=== PATIENT | male | born 1990 | race Caucasian/White ===

== ENCOUNTER 2016-10-25 02:37 | Emergency (ER) | payer OTHER ==
[~2016-10-25] VITALS: Ht 180.3 cm; Wt 68.0 kg
[~2016-10-25 02:37] MED LIST: TRAZODONE HCL50 MG; WELLBUTRIN XL300 MG; ZYPREXA15 MG
--- NOTE | 2016-10-25 02:44 | ED PSYCHIATRIC COMPLAINT ---
See Addendum History of Present Illness General Chief Complaint: Psychiatric Related Complaint Stated Complaint: +SI Source: patient, old records, EMS, police Exam Limitations: no limitations Vital Signs & Intake/Output Vital Signs & Intake/Output Vital Signs Date Time Temp Pulse Resp B/P B/P Pulse O2 O2 Flow FiO2 Mean Ox Delivery Rate 10/25 0300 98.6 115 18 126/73 10/25 0250 98.6 115 20 126/73 95 Room Air Allergies Coded Allergies: MDX - Peanut Oil (PEANUT OIL) (Severe, ANAPHALAXIS 04/22/15) Reconcile Medications Bupropion Hydrochloride (Wellbutrin XL) 300 MG T24 DEPRESSION (Reported) Olanzapine (Zyprexa) 15 MG TAB 1 AT BEDTIME BIPOLAR DISORDER (Reported) TRAZODONE HCL (Trazodone HCl) 50 MG TABLET INSOMNIA (Reported) Triage Nurses Notes Reviewed? yes HPI: Patient brought in on a piece paper after expressing suicidal ideations offered. Patient states that he just has multiple stressors in his life right now and he does not know what to do. Patient stopped his medications one to 2 weeks ago. Patient is supposed take Zyprexa, Wellbutrin and Adderall. Patient has no specific plan. Patient denies homicidal ideations. Patient also states that he stepped heroin tonight positive alcohol. Patient states he drinks approximately 12 beers every day. Past History Travel History Traveled to [place] past 21 day No Medical History Any Pertinent Medical History? 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 No Review of Systems Review of Systems Constitutional: Reports: no symptoms. EENTM: Reports: no symptoms. Respiratory: Reports: no symptoms. Cardiovascular: Reports: no symptoms. GI: Reports: no symptoms. Genitourinary: Reports: no symptoms. Musculoskeletal: Reports: no symptoms. Skin: Reports: no symptoms. Neurological/Psychological: Reports: see HPI, depressed. Hematologic/Endocrine: Reports: no symptoms. Immunologic/Allergic: Reports: no symptoms. All Other Systems: Reviewed and Negative Physical Exam Physical Exam General Appearance: well developed/nourished, mild distress Head: atraumatic Eyes: Bilateral: PERRL, EOMI. Ears, Nose, Throat: normal pharynx, normal ENT inspection, hearing grossly normal Neck: normal inspection, supple Respiratory: normal breath sounds Cardiovascular: regular rate/rhythm Gastrointestinal: soft, non-tender Extremities: normal range of motion Neurological/Psychiatric: no motor/sensory deficits, awake, alert, calm, oriented x 3 Appearance/Memory/Insight: appropriate appearance, appropriate insight Behavoir/Eye Contact/Speech: cooperative, normal speech, good eye contact Thoughts/Hallucinations: normal thought pattern, no apparent hallucination Skin: intact, normal color, warm/dry SAD PERSONS Done? CRISIS CONSULT OBTAINED Progress Differential Diagnosis: drug intoxication, drug overdose, drug withdrawal, electrolyte abnormality Plan of Care: Orders Procedure Date/time Status [facility] 10/25 242 Active Continuous Observation Monitor 10/25 241 Active URINE DRUGS OF ABUSE 10/25 241 Active ETHANOL 10/25 241 Complete COMPREHENSIVE METABOLIC PANEL 10/25 241 Complete CBC WITHOUT DIFFERENTIAL 10/25 241 Complete ED CRISIS PSYCH CONSULT 10/25 241 Active Laboratory Tests 10/25/16 0255: Anion Gap 19 H, Estimated GFR > 60, BUN/Creatinine Ratio 10.0, Glucose 117 H, Calcium 9.6, Total Bilirubin 0.4, AST 16 L, ALT 30, Alkaline Phosphatase 67, Total Protein 7.5, Albumin 4.7, Globulin 2.8, Albumin/Globulin Ratio 1.7, CBC w Diff NO MAN DIFF REQ, RBC 4.88, MCV 90.7, MCH 30.6, RDW 13.9, MPV 7.2 L, Gran % 68.4, Lymphocytes % 23.2, Monocytes % 7.6, Eosinophils % 0.5, Basophils % 0.3, Absolute Granulocytes 7.9 H, Absolute Lymphocytes 2.7, Absolute Monocytes 0.9 H, Absolute Eosinophils 0.1, Absolute Basophils 0, PUBS MCHC 33.7, Serum Alcohol 54.0 Hand-Off Endorsed To: AUGUSTO CARRINGTON MD Endorsed Time: 0700 Pending: consult Departure Departure Disposition: STILL A PATIENT Condition: Stable Clinical Impression Primary Impression: Suicidal ideation Referrals: PATIENT HAS NO PRIMARY CARE DR (PCP/Family) Departure Forms: Customer Survey General Discharge Information
[2016-10-25 03:08] LABS: ABSOLUTE BASOPHIL COUNT 0 /CUMM (0.0-0.2); ABSOLUTE EOSINOPHIL COUNT 0.1 /CUMM (0.0-0.7); ABSOLUTE GRANULOCYTE CT 7.9 /CUMM (1.4-6.5); ABSOLUTE LYMPH COUNT 2.7 /CUMM (1.2-3.4); ABSOLUTE MONOCYTE COUNT 0.9 /CUMM (0.10-0.60); BASOPHIL % 0.3 % (0.0-2.0); EOSINOPHIL % 0.5 % (0-5); GRANULOCYTE % 68.4 % (42.2-75.2); HEMATOCRIT 44.3 % (42-52); MEAN CORPUSCULAR HGB 30.6 PG (27.0-31.0); MEAN CORPUSCULAR HGB CONC 33.7 G/DL (33.0-37.0); MEAN CORPUSCULAR VOLUME 90.7 FL (80.0-94.0); MEAN PLATELET VOLUME 7.2 FL (7.4-10.4); PLATELET COUNT 381 /CUMM (130-400); RBC DISTRIBUTION WIDTH 13.9 % (11.5-14.5); RED BLOOD CELL CT 4.88 /CUMM (4.70-6.10); WHITE BLOOD CELL COUNT 11.5 /CUMM (4.8-10.8)
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
[2016-10-25 13:05] VITALS: BP 132/60
== END 2016-10-25 15:26 | disposition other institution (70) ==
LOC: ERH 02:37
PROVIDERS: Emergency Medicine
DX: R45.851 Suicidal ideations (principal)
CPT/HCPCS: 80307; G0463; G0480; J3101

== ENCOUNTER 2016-11-26 01:50 | Inpatient (IN) | payer OTHER ==
[~2016-11-26] VITALS: Ht 188 cm; Wt 77.1 kg
--- NOTE | 2016-11-26 01:52 | ED AMS/SEIZURE/WEAK/DIZZY ---
History of Present Illness General Chief Complaint: ETOH/Drug Related Complaint Stated Complaint: BIBA ETOH Source: patient, EMS, police Exam Limitations: intoxication Vital Signs & Intake/Output Vital Signs & Intake/Output Vital Signs Date Time Temp Pulse Resp B/P B/P Pulse O2 O2 Flow FiO2 Mean Ox Delivery Rate 11/26 1205 97.8 91 18 140/72 96 Room Air 11/26 0814 97.0 88 18 124/68 98 Room Air 11/26 0634 96.0 92 20 128/69 97 Room Air 11/26 0402 96.8 88 18 137/86 98 Room Air 11/26 0210 97 Room Air Room Air 11/26 0201 96.7 110 20 146/90 97 Room Air Allergies Coded Allergies: peanut oil (Severe, ANAPHALACTIC 11/26/16) Reconcile Medications Bupropion Hydrochloride (Wellbutrin XL) 300 MG T24 DEPRESSION (Reported) Divalproex Sodium 250 MG TABLET.DR 3 TAB PO BID UNKNOWN (Reported) Olanzapine (Zyprexa) 15 MG TAB 1 AT BEDTIME BIPOLAR DISORDER (Reported) TRAZODONE HCL (Trazodone HCl) 50 MG TABLET INSOMNIA (Reported) Triage Nurses Notes Reviewed? yes Onset: Gradual Duration: day(s):, waxing and waning Timing: recent history Injury Environment: home Severity: moderate Modifying Factors: Improves With: rest. Associated Symptoms: DEPRESSION HPI: 26 yo gentleman discharged from [facility] yesterday presents after taking multiple medications, alcohol, and cocaine during the day. The medics note that he shared he had an intent to kill himself. The patient states that he took depakote 1000mg, gabapentin 4000mg as well as alcohol and cocaine. He denies trauma He denies other medical issues. (JOAQUÍN ROOT,SOFÍA Blum) Past History Travel History Traveled to [place] past 21 day No Medical History Any Pertinent Medical History? 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 No (JOAQUÍN ROOT,SOFÍA Blum) Review of Systems Review of Systems Constitutional: Reports: no symptoms. EENTM: Reports: no symptoms. Respiratory: Reports: no symptoms. Cardiovascular: Reports: no symptoms. GI: Reports: no symptoms. Genitourinary: Reports: no symptoms. Musculoskeletal: Reports: no symptoms. Skin: Reports: no symptoms. Neurological/Psychological: Reports: no symptoms. Hematologic/Endocrine: Reports: no symptoms. Immunologic/Allergic: Reports: no symptoms. All Other Systems: Reviewed and Negative (JOAQUÍN ROOT,SOFÍA Blum) Physical Exam Physical Exam General Appearance: well developed/nourished, mild distress Head: atraumatic, normal appearance Eyes: Bilateral: normal appearance. Ears, Nose, Throat: normal pharynx, normal ENT inspection Neck: normal inspection, supple, full range of motion Respiratory: normal breath sounds, chest non-tender, no respiratory distress, quiet respiration, lungs clear Cardiovascular: regular rate/rhythm Gastrointestinal: normal bowel sounds, soft, non-tender Back: normal inspection Extremities: normal range of motion Neurologic/Psych: no motor/sensory deficits, awake, slightly belligerent, but able to be redirected Core Measures ACS in differential dx? No CVA/TIA Diagnosis: No Severe Sepsis Present: No Septic Shock Present: No (JOAQUÍN ROOT,SOFÍA Blum) Progress Differential Diagnosis: depression, polysubstance abuse vs other Plan of Care: Orders Procedure Date/time Status Regular Diet 11/26 D Active Regular Diet 11/26 B Complete Admit to inpatient psych 11/26 1346 Active Patient Data - inpatient psych 11/26 1236 Active Admit to inpatient psych 11/26 1236 Active EKG 11/26 1236 Active Continuous Observation Monitor 11/26 0152 Active URINE DRUG SCREEN FOR ER ONLY 11/26 0152 Complete ACETOMINOPHEN 11/26 0152 Complete SALICYLATE 11/26 0152 Complete ETHANOL 11/26 0152 Complete DEPAKOTE LEVEL 11/26 0152 Complete COMPREHENSIVE METABOLIC PANEL 11/26 0152 Complete CBC WITHOUT DIFFERENTIAL 11/26 0152 Complete ED CRISIS PSYCH CONSULT 11/26 0152 Active Vital Signs 11/26 UNK Active Nursing Misc 11/26 UNK Active Alternative Nursing Therapy 11/26 UNK Active Activity/Ambulation 11/26 UNK Active Laboratory Tests 11/26/16 0225: Urine Opiates Screen < 100.00, Methadone Screen < 40, Barbiturate Screen < 60, Ur Phencyclidine Scrn < 6.00, Amphetamines Screen < 100, U Benzodiazepines Scrn < 85, Urine Cocaine Screen < 50, Urine Cannabis Screen 62.80 H 11/26/16 0225: Anion Gap 13, Estimated GFR > 60, BUN/Creatinine Ratio 14.4, Glucose 95, Calcium 9.3, Total Bilirubin 0.2, AST 25, ALT 35, Alkaline Phosphatase 59, Total Protein 6.9, Albumin 4.4, Globulin 2.5, Albumin/Globulin Ratio 1.8, CBC w Diff NO MAN DIFF REQ, RBC 4.43 L, MCV 91.0, MCH 30.8, RDW 14.9 H, MPV 7.0 L, Gran % 59.1, Lymphocytes % 32.9, Monocytes % 6.3, Eosinophils % 1.0, Basophils % 0.7, Absolute Granulocytes 5.7, Absolute Lymphocytes 3.2, Absolute Monocytes 0.6, Absolute Eosinophils 0.1, Absolute Basophils 0.1, PUBS MCHC 33.9, Salicylates < 1.0, Acetaminophen < 10.0 L, Valproic Acid 70.3, Serum Alcohol 180.0 Initial ED EKG: none Hand-Off Endorsed To: JOE PICKARD MD Endorsed Time: 0700 Pending: consult, labs (JOAQUÍN ROOT,SOFÍA Blum) Comments: 11/26/2016 7:34:26 AM patient signed out to me by Dr. Gaxiola at shift change management. 11/26/2016 1:46:47 PM patient has been evaluated by the crisis condition and will be admitted to inpatient psychiatry. (JOE PICKARD MD) Departure Departure Disposition: STILL A PATIENT Condition: Stable Referrals: PATIENT HAS NO PRIMARY CARE DR (PCP/Family) Departure Forms: Customer Survey General Discharge Information Comments 11/26/16, 4:04am... pt resting comfortably... pt to be evaluated by crises when sober. (JOAQUÍN ROOT,SOFÍA Blum) Departure Clinical Impression Primary Impression: Polysubstance abuse Secondary Impressions: Depression Qualifiers: Depression Type: unspecified Qualified Code: F32.9 - Major depressive disorder, single episode, unspecified Psych Admission Note Psychiatric Admission: I have also reviewed all the pertinent lab results and diagnostic results. PAMELA NEELY will be admitted to our inpatient Psychiatric unit for treatment and care. (NEERAJ ROOT,JOE Mullins)
[2016-11-26] MEDS ORDERED: DIVALPROEX SOD250 M2 PO (02:10)
[2016-11-26 02:33] LABS: ABSOLUTE BASOPHIL COUNT 0.1 /CUMM (0.0-0.2); ABSOLUTE EOSINOPHIL COUNT 0.1 /CUMM (0.0-0.7); ABSOLUTE GRANULOCYTE CT 5.7 /CUMM (1.4-6.5); ABSOLUTE LYMPH COUNT 3.2 /CUMM (1.2-3.4); ABSOLUTE MONOCYTE COUNT 0.6 /CUMM (0.10-0.60); BASOPHIL % 0.7 % (0.0-2.0); GRANULOCYTE % 59.1 % (42.2-75.2); HEMATOCRIT 40.3 % (42-52); MEAN CORPUSCULAR HGB 30.8 PG (27.0-31.0); MEAN CORPUSCULAR HGB CONC 33.9 G/DL (33.0-37.0); PLATELET COUNT 353 /CUMM (130-400); RBC DISTRIBUTION WIDTH 14.9 % (11.5-14.5); RED BLOOD CELL CT 4.43 /CUMM (4.70-6.10); WHITE BLOOD CELL COUNT 9.6 /CUMM (4.8-10.8)
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
[2016-11-26 14:39] VITALS: BP 131/74
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
[2016-11-26] MEDS ORDERED: DEPAKOTE125 M1 PO (15:13)
[2016-11-26] MEDS ORDERED: PROZAC40 M1 PO (15:14)
[2016-11-26 19:58] VITALS: BP 139/74
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
--- NOTE | 2016-11-26 20:29 | Admission Certification ---
Admission Certification Certification Statement - As attending physician, I certify that at the time of - admission, based on clinical presentation, severity of - symptoms, need for further diagnostic testing and - therapeutic interventions, and risk of adverse outcomes - without in-hospital treatment, in my clinical assessment, - this patient requires an acute hospital stay for a minimum - of two nights or longer. I have also considered psychsocial - factors such as support system, advanced age, financial - issues, cognitive issues, and failed out-patient treatments, - past re-admission history, safety of patient, and lack of - compliance as applicable. Specific rationale supporting this admission is: Depression, SI.
[2016-11-27 08:11] VITALS: BP 138/63
--- NOTE | 2016-11-27 11:44 | CP SOUTH PROGRESS NOTE PSYCH ---
Psych (Inpt) Progress Note Progress Note Patients record reviewed BP 138/63, Pulse 78, Temp 97.3 Yesterdays Labs showed VPA level of 70.3 microgram per mL (RR: 50-120) Normal liver function, HB and Hct marginally low, Sodium marginally elevated Patient asymptomatic Normal kidney function Sleep log showed Pt. slept well, no issues Reason For hospitalization: at [facility] then [place]. Dc'd from [place] yesterday where he was hospitalized for 4 days for depression with SI. Yesterday drank EtOH heavily, continued to feel depressed, took "a handful of meds" from his pocket and reports that his intention was to end his life. He then went to [facility] because he believed he had an active warrant for his arrest, told PD about his SI and suicide attempt, and was brought to ED. In ED, BAL 180, continues to have SI with plan for overdose. Unable to identify mitigating safety factors. Multiple recent stressors. As per crisis SW note: " Mental Status Examination: Steady gait, normal appearance, cooperative Normal psychomotor activity, no abnormal behaviors, reduced speech Constricted affect, mood is depressed and anxious Reported ongoing suicidal Ideation, no intent or plan Denied Homicidal Ideation, denies Hallucinations: No Paranoid/Delusional Material: Limited insight: Oriented and alert, no memory deficits Average intellectual functioning: Impression and Plan: DSM 5 Diagnoses of record: Unspecified depressive disorder (Major depressive disorder versus bipolar disorder MRE depressed) per chart ADHD per chart Unspecified anxiety disorder Opiate use disorder Cannabis use disorder Alcohol use disorder Treatment Plan: Add Gabapentin 600 mg TID for his complaints of anxiety Follow up tomorrow with regular treatment team
[2016-11-27 12:15] VITALS: BP 124/71
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
[2016-11-27 16:03] VITALS: BP 133/66
[2016-11-27 19:43] VITALS: BP 124/60
[2016-11-28 07:56] VITALS: BP 125/68
--- NOTE | 2016-11-28 12:10 | SOCIAL WORKER PROG NOTE PSYCH ---
Social Work Progress Note Progress Note Feliciano reported that he left [facility] on Sunday. His plan was to stay at a friend's house, but then this friend had a wedding to go to over the weekend. He was supposed to stay with a cousin, but then that fell through. He stated he ended up drinking at a bar and when he drinks it impacts his mental health. He came into the emergency room and reported that he ingested pills, but he now reports that was not the truth and he said it so he would get admitted and then get set up with IOP. He feels his problems stem from his addiction, stating "drinking fuels everything." His current depression is a 3 (1-10, 10 being worst) and anxiety a 3 (1-10, 10 being worst). He stated that his plan to go to his friend Romeo's house upon discharge. He stated he is a supportive and sober friend. He was open to having him in for a meeting and signed a release for him. The only other family he has is his sister and she currently has temporary custody of his 15 month old daughter. Daughter was placed there by [facility], after there was an issue with the baby's Mother's mental health and addiction problems. He is not supposed to be around her right now. Per his report, he is supposed to be in treatment for his addiction, which is another motivator for him to get help right now. He has no current withdrawal symptoms. He has been clean from opiates for the past 2 weeks and reports that he is looking to get on Suboxone with [facility]. He is requesting IOP here at [place]. When he drinks he drinks about 12 beers and a few shots. Reports sleeping ok, but has some racing thoughts. Called Feliciano's friend Romeo. Romeo confirmed that he will be staying with him. He is available to come in for a meeting at 1pm tomorrow.
[2016-11-28 12:51] VITALS: BP 113/67
--- NOTE | 2016-11-28 15:49 | SOCIAL WORKER TX PLAN PSYCH ---
Treatment Plan - Please Document: - Evidence that there is ongoing collaboration between - the patient and the interdisciplinary team, - including the patient's active participation and - responsibility for engaging in the treatment regimen, - and that the treatment plan is individualized and - relevant to the patient's conditions. - Treatment plan should reflect documentation indicating - that all active therapeutic efforts are included. Strengths/Capabilities: He had good insight into his need for treatment and is motivated to attend. Physical Limitations (Interventions): none noted Patient Identified Trmt Goals: "I need to stay away from alcohol" Discharge Plan: [facility]- dual track Stay with friend Problem/Goals #1 Problem #1: depression Goal (Short Term): patient will explore medication changes to help manage symptoms of depression Goal (Group Home): Patient will be able to verbalize increased hopefullness about his life Interventions: patient will be offered medication management with the TABLE INSPECTOR, patient will be offered groups on symptom management, coping skills, focus group, goals group. hand worker will hold family meeting, collaborate with outside providers, and assist with aftercare planning. Modalities: group/ individual/ family Problem/Goals #2 Problem #2: alcohol dependence/abuse Goal (Short Term): patient will identify triggers to relapse Goal (Group Home): patient will develope a relapse prevention plan Interventions: patient will be offered medication assistance by the TABLE INSPECTOR, patient will be offered groups on relapse prevention, AA, coping skills. Enroute Controller will discuss AA and aftercare planning. DSM5/PS Stressors/Medical Prob Diagnosis' (DSM 5, Stressors, Medical): F32.9 Unspecified Depressive Disorder F10.20 Alcohol use disorder, moderate F11.20 Opiate use disorder, moderate Current GAF: 29 Treatment Team - Responsibilities of members of the treatment team include: - Medication Management- MD or TABLE INSPECTOR - Medication Administration and Monitoring- Nurse - Group Therapy- Occupational Therapist - 1:1 Therapy,Disch Planning,family involvement-Enroute Controller
--- NOTE | 2016-11-28 16:16 | CP SOUTH PROGRESS NOTE PSYCH ---
Psych (Inpt) Progress Note Progress Note Include the following elements, when applicable: Involvement in the active treatment of the patient with behavioral observations of the patient and the patient's response to the treatment. Review of the ongoing treatment process in the context of the treatment plan. Indication of how multi-disciplinary staff members are carrying out the treatment plan. Plans for future interventions and recommendations for revision of the treatment plan. Liaison with other physicians/providers. Progress Note: I discussed this patient's progress to date, current mental status, treatment process in the context of the treatment plan, and discharge planning with staff/ team in the daily morning inpatient team meeting. I also met with the patient myself in individual session. Current Medications Sig/Angle Start time Last Medication Dose Route Stop Time Status Admin Acetaminophen 650 MG Q4P PRN 11/27 1300 AC 11/28 PO 1600 Divalproex Sodium 750 MG 0800,11/26 2200 AC 11/28 PO 1001 Fluoxetine HCl 40 MG DAILY 11/27 1000 AC 11/28 PO 1001 Gabapentin 600 MG TID 11/27 1600 AC 11/28 PO 1550 Nicotine 2 MG Q2 HRS NEEDED PRN 11/26 1530 AC PO Nicotine 14 MG DAILY 11/26 1518 AC 11/28 TOP 1000 Trazodone HCl 50 MG AT BEDTIME PRN 11/26 1530 AC 11/27 PO 2131 Vital Signs Date Time Temp Pulse Resp B/P B/P Pulse O2 O2 Flow FiO2 Mean Ox Delivery Rate 11/28 1251 84 113/67 11/28 0756 95.9 68 125/68 11/27 1943 98.3 92 124/60 A: Chart, progress notes, labs, VS and medication list reviewed. Vital signs within normal limits. No new lab results today. Patient is 26-year-old single, male who was BIBA on a PEER for SI. Patient reported he had taken "a handful of meds" in a suicide attempt. Had previously been hospitalized at [facility] and then [facility]. Historically, has multiple prior inpatient hospitalizations. Per Crisis ED eval, patient was discharged from [facility] 11/24/16. He had been hospitalized there for 4 days for depression with SI. Had been drinking EtOH heavily, endorsed continued depression, took "a handful of meds" with intent to end his life. He went to [facility] because he believed he had an active warrant for his arrest, told PD about his SI and suicide attempt, and was brought to ED. In ED, BAL 180, continues to have SI with plan for overdose. Unable to identify mitigating safety factors. Multiple recent stressors. Met with patient individually this evening. He shared that he was recently discharged from [facility] last week. Stated he relapsed on alcohol, "everytime I drink I get suicidal." Stated he had no place to go because he was supposed to stay with a friend in [place], but his friend was out at a wedding. He recanted having actually ingested pills prior this admission. Stated today that he had come to the hospital for a place to stay and to get into IOP. Expressed halfway struggle with sobriety, primary alcohol now. Interested in anti-craving medication. Med education provided on Naltrexone, including the risk/benefit/se profiles. He was made aware that use of opiates with this medication will result in withdrawal. He denies opiate use. Utox (+) only for cannabis. Patient agreeable to Naltrexone trial. He denies active and passive suicidal ideation, plans, intent. Denies homicidal ideation, auditory and visual hallucinations. Continues to report + racing thoughts but only during the night. Reports interupted sleep d/t racing thoughts. Reports appetite and energy level are good. Denies paranoia or bizarre thoughts. No evidence of delusions or paranoia. Rates his depression and anxiety as being variable throughout the day, presently rates both a 3/10 (10 being the worst). Tolerating prn Gabapentin well, reports some effect on anxiety. Denies medication SEs, agreeable to continue taking. P: 1. Cont. Depakote 750mg BID for mood stabilization. 2. Cont. Prozac 40mg for depression. 3. D/C Trazodone 50mg prn QHS x 1 rpt dose for insomnia. Start Seroquel 50mg prn QHS x 1 rpt dose for racing thoughts/insomnia. Reviewed risk/benefit/se profiles of Seroquel, patient agreeable to trial. 4. Start naltexone 50mg po daily for alcohol cravings. 5. Dispo planning per primary team.
[2016-11-28 16:30] VITALS: BP 136/71
[2016-11-28 20:18] VITALS: BP 129/67
[2016-11-29 12:16] VITALS: BP 129/79
--- NOTE | 2016-11-29 13:37 | SOCIAL WORKER PROG NOTE PSYCH ---
Social Work Progress Note Progress Note Meeting held this afternoon with Feliciano and his friend Romeo. He will be staying with Romeo and his at discharge. Romeo seems supportive and aware of everything Feliciano is going through. Talked about starting Naltrexone vx. Suboxone. Patient agreed to start Naltraxone today. Discussed follow up at the IOP and with AA. He mentioned meeting the tallow pumper of the AA meeting here last night and will most likely follow up with him in the community. Feliciano denies any symptoms of depression or anxiety right now. No SI/ HI. Talked about how he is most likely ready for discharge and we will set up his IOP intake for tomorrow. Romeo will be available to pickling tank operator Feliciano tomorrow. Talked about importance of medication compliance. Feliciano is still determining if he thinks the Depakote is working for him. Encouraged him to remain on it and reminded him that it's difficult to tell if med are working or not when there are substances involved. Intake at [facility] scheduled for 11:30am. Asked if he could possibly start IOP tomorrow night? Samantha DCF worker called and left a message for an update. She faxed over a release for us to talk. I returned the call and gave her an update and plan for discharge.
[2016-11-29 15:59] VITALS: BP 134/70
--- NOTE | 2016-11-29 16:01 | CP SOUTH PROGRESS NOTE PSYCH ---
Psych (Inpt) Progress Note Progress Note Include the following elements, when applicable: Involvement in the active treatment of the patient with behavioral observations of the patient and the patient's response to the treatment. Review of the ongoing treatment process in the context of the treatment plan. Indication of how multi-disciplinary staff members are carrying out the treatment plan. Plans for future interventions and recommendations for revision of the treatment plan. Liaison with other physicians/providers. Progress Note: Chart, progress notes, labs, VS and medication list reviewed. Vital signs within normal limits. No new labs results today. Vital Signs Date Time Temp Pulse Resp B/P B/P Pulse O2 O2 Flow FiO2 Mean Ox Delivery Rate 11/29 1559 83 134/70 11/29 1216 85 129/79 11/28 2018 96.8 84 129/67 11/28 1630 83 136/71 Current Medications Sig/Angle Start time Last Medication Dose Route Stop Time Status Admin Acetaminophen 650 MG Q4P PRN 11/27 1300 AC 11/28 PO 1600 Divalproex Sodium 750 MG 0800,2000 11/26 2200 AC 11/29 PO 0825 Fluoxetine HCl 40 MG DAILY 11/27 1000 AC 11/29 PO 0825 Gabapentin 600 MG TID 11/27 1600 AC 11/29 PO 1557 Naltrexone HCl 50 MG QAM 11/29 1330 AC 11/29 PO 1438 Naltrexone HCl 50 MG DAILY 11/29 1000 CAN PO Nicotine 2 MG Q2 HRS NEEDED PRN 11/26 1530 AC PO Nicotine 14 MG DAILY 11/26 1518 AC 11/29 TOP 0826 Quetiapine Fumarate 50 MG AT BEDTIME 11/29 2200 UNVr PO Quetiapine Fumarate 50 MG AT BEDTIME NEED.. 11/29 1630 UNVr PO Quetiapine Fumarate 50 MG AT BEDTIME NEED.. 11/28 1645 DC 11/28 PO 2137 Trazodone HCl 50 MG AT BEDTIME PRN 11/26 1530 DC 11/27 PO 2131 Laboratory Tests 11/29/ 0612: A: Chart, progress notes, labs, VS and medication list reviewed. Vital signs within normal limits. No new lab results today. Serum sodium within normal limits. I held scheduled Naltrexone 50mg QAM this morning after becoming aware that patient expressed interest in starting Suboxone for opiate maintenance which he had been on in the distant past. Informed patient that if this is his intent, he could be referred to [facility] or [facility]. Patient stated that [facility] had a very long wait list for suboxone and was not interested in pursuing [facility]. Stated he preferred Naltrexone as it would target both alcohol and opiate cravings. Reviewed medication education with patient, including the risk/benefit/se profiles of naltrexone. Reported last use of opiates was 1 month ago. Utox (+) for MJ only. 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 Patient aware of all risks of using naltrexone concomitantly with opiates and verbalized understanding. Agreeable to trial. Met with patient this afternoon. Expressed feeling positive about today's meeting with his friend Romeo who he plans to stay with post-discharge. He seemed motivated to engage in Dual [facility] post-discharge and to resume AA meetings and obtain a sponsor for support in sobriety. Stated he attended AA meeting on unit last night. Identified that every time he drinks alcohol something bad happens and he mentally decompensates. Agreeable to trial of Naltrexone. Stated sleeping well without interuption last night after taking prn Seroquel 50mg. He requested to have this ordered as a scheduled medications given + effect. Denied recurrence of racing thoughts. 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 Stated he needed a place to go and knew he could get into the hospital. Today, he denies active and passive SI, HI, AVH. Denies feeling hopeless, helpless, worthless, guilty. Denied AH and VH. Reported appetite and energy level are good. Thought process linear, goal-directed. Affect full-range, appropriate. No evidence of andreia/hypomania or psychotic symptoms. Patient agreeable to taking prescribed medications which he reports tolerating well. P: 1. Change Seroquel from 50mg QHS prn x 1 rpt dose to 50mg QHS. Will add prn Seroquel 50mg if needed. 2. Rpt VPA level tomorrow morning for trough. 3. Start Naltrexone 50mg daily for opiate/etoh cravings. 4. Cont. all other psychotropics. 5. Discharge tomorrow with f/u at [facility].
[2016-11-29 19:37] VITALS: BP 135/70
[2016-11-30 08:11] VITALS: BP 110/60
--- NOTE | 2016-11-30 10:28 | SOCIAL WORKER PROG NOTE PSYCH ---
Social Work Progress Note Progress Note Feliciano is doing well this morning. Ready for discharge. His friend Romeo will be picking him up across the street after his intake. I let him know that I spoke with Samantha from [facility] yesterday and informed her of his d/c plan. Encouraged him to follow up with AA, taking his meds, and attending IOP. Talked about smoking cessation group across the street. He said he has done well with not smoking much over the past month. Currently has the patch on. He may continue to try and quit, but stated "we'll see." He is requesting a letter for court about his stay here. Which will be provided at discharge.
[2016-11-30] MEDS ORDERED: PROZAC40 M1 PO (10:45)
[2016-11-30] MEDS ORDERED: NICOTINE PATCH1 EAC2 TOP (11:02)
[2016-11-30] MEDS ORDERED: DIVALPROEX SOD250 M2 PO (11:03)
[2016-11-30] MEDS ORDERED: NALTREXONE HCL50 M1 PO (11:03)
[2016-11-30] MEDS ORDERED: GABAPENTIN300 M2 PO (11:03)
[2016-11-30] MEDS ORDERED: SEROQUEL50 M1 PO (11:04)
--- NOTE | 2016-11-30 12:55 | CP SOUTH PROGRESS NOTE PSYCH ---
Psych (Inpt) Progress Note Progress Note Include the following elements, when applicable: Involvement in the active treatment of the patient with behavioral observations of the patient and the patient's response to the treatment. Review of the ongoing treatment process in the context of the treatment plan. Indication of how multi-disciplinary staff members are carrying out the treatment plan. Plans for future interventions and recommendations for revision of the treatment plan. Liaison with other physicians/providers. Progress Note: Medication list reviewed. Case and treatment plan discussed in team meeting. Staff reports that the patient is doing well. Visible on the unit. Social. Lied about an OD prior to admission. Has an intake at [facility] today at 11:30 a.m. Plans to stay with a friend, Romeo. VPA level 88. Patient seen with medical student at 10:54 a.m. Patient states "every time I drink, I get in trouble. 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 Reports having a court date on 12/26/16. Affect is calm and blunted. Mood is good. Sad 0/10. Anxiety 1/10. Denies feeling hopeless, helpless, worthless or guilty. Denies active and passive SI, HI, AH, VH, PI and magical iniguez. Ox3. Reports sleep has been great for the past 2 days. Appetite and energy are described as good. Tolerating medications well, without complaint. Feels ready and safe for discharge. IMPRESSION: Condition improved. Okay for discharge with follow up as above.
--- NOTE | 2016-11-30 16:29 | DISCHARGE SUMMARY REPORT-PSYCH ---
Visit Information Visit Dates/Diagnosis' Admission Date: 11/26/16 Discharge Date: 11/30/16 Reason for Admission: Suicidal ideation. Psy Discharge Primary Diag: Unspecified depression Psy Discharge Secondary Diag: R/o major depression R/o bipolar d/o depressed ADHD by history Opiate use disorder Cannabis use disorder Alchol use disorder Mild anemia Abnormal EKG Hospital Course Significant Lab Findings: Depakote level 11/30/16 = 88.0 HgB low at 13.6, HCT low at 40.3. Alcohol level 180. Urine drug screen + for cannabis. ECG 11/26/16: sinus rhythm at a rate of 73, consider LVH, ST elev, probable normal early repol pattern, faster rate since previous tracing, abnormal ECG. Course Complications: None. Consultations: Patient was seen by CARLEY PATTERSON MD for admission H&P. Please see Dr. Patterson's note for additional information. Allergies: Coded Allergies: peanut oil (Severe, ANAPHALACTIC 11/26/16) Hospital Course/TX Response: The patient was monitored on the unit for safety and mood disorder. He participated in multi-modal treatments on the unit. Zyprexa, Wellbutrin XL and trazodone were not continued. The patient was treated with Nuerontin, Depakote, Seroquel, Prozac, Revia and nicotine patch. Mood and affect have improved. SI has remitted. Progress note on date of discharge, 11/30/16: Medication list reviewed. Case and treatment plan discussed in team meeting. Staff reports that the patient is doing well. Visible on the unit. Social. Lied about an OD prior to admission. Has an intake at [facility] today at 11:30 a.m. Plans to stay with a friend, Romeo. VPA level 88. Patient seen with medical student at 10:54 a.m. Patient states "every time I drink, I get in trouble. 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 Reports having a court date on 12/26/16. Affect is calm and blunted. Mood is good. Sad 0/10. Anxiety 1/10. Denies feeling hopeless, helpless, worthless or guilty. Denies active and passive SI, HI, AH, VH, PI and magical iniguez. Ox3. Reports sleep has been great for the past 2 days. Appetite and energy are described as good. Tolerating medications well, without complaint. Feels ready and safe for discharge. IMPRESSION: Condition improved. Okay for discharge with follow up as above. Discharge HBIPS - Tobacco Use Treatment Offered Post DC Medications Offered: Script Given-See Med List Post DC Tobacco Treatment Plan: [facility] Program Appt Date: 12/06/16 Program Appt Time: 1600 - EtOH/Drug Use D/O Treatment Offered Post DC Medications Offered: Script Given-See Med List (Revia.) Post DC EtOH/SubAbuse TX Plan: [facility] SubAbuse/Dual IOP Program Appt Date: 11/30/16 Program Appt Time: 1130 Metabolic Screening - Screen if on a Neuroleptic Medication - Metabolic screening should include: - Blood Pressure, BMI, Glucose or Hgb A1c, & a - Lipid profile from within the past 365 days. Metabolic Screening () Not Applicable, patient not on a neuroleptic. OR ([x]) Patient on a neuroleptic(s) . Enter below results for Glucose or Hemoglobin A1C, and lipid panel if obtained during the last 365 days. BMI: 21.800 Blood Pressure: 110/60 Laboratory Results (If applicable): Lab Glucose 95 mg/dL 11/26/16 0225 Discharge Instructions General Discharge Information Discharge Medications: Discharge Medications- (Dose, route, freq, indication): START taking these NEW Home Medications: Nicotine (Nicotine Dose: On the skin, DAILY for Qty: 14 Called in to Patch) 14 MG/24 HOUR 14 Milligram smoking cessation Refills: 0 Pharm 1 PATCH.[email or web address] Last Taken: 11/30/16 Time: 0800 Naltrexone HCl Dose: ORAL, Every Morning for Qty: 14 Called in to (Naltrexone HCl) 50 50 Milligram alcohol craving/opiate Refills: 0 Pharm 1 MG TABLET feliz Last Taken: 11/30/16 Time: 0800 Divalproex Sodium Dose: ORAL, 0800,2000 for mood Qty: 84 Called in to (Divalproex Sodium) 750 Milligram stabilizer Refills: 0 Pharm 1 250 MG TABLET. Last Taken: 11/30/16 Time: 0800 Gabapentin Dose: ORAL, THREE TIMES DAILY Qty: 84 Called in to (Gabapentin) 300 MG 600 Milligram for off-label for anxiety Refills: 0 Pharm 1 CAPSULE Last Taken: 11/30/16 Time: 0800 Quetiapine Fumarate Dose: ORAL, AT BEDTIME for to Qty: 14 Called in to (Seroquel) 50 MG 50 Milligram clear thoughts/help mood Refills: 0 Pharm 1 TABLET Last Taken: 11/29/16 Time: 2200 CONTINUE taking these Home Medications: Fluoxetine HCl (Prozac) Dose: ORAL, DAILY for Renewed 40 MG CAPSULE 1 Capsule depression Called in to Last Taken: 11/30/16 Pharm 1 Time: 0800 STOP taking these DISCONTINUED Home Medications: TRAZODONE HCL (Trazodone HCl) Dose: , AT BEDTIME for INSOMNIA 50 MG TABLET Reason Stopped: discont'd Olanzapine (Zyprexa) 15 MG TAB Dose: , AT BEDTIME for BIPOLAR DISORDER 1 Reason Stopped: Changed to different med Bupropion Hydrochloride Dose: , DAILY for DEPRESSION (Wellbutrin XL) 300 MG T24 Reason Stopped: Changed to different med Divalproex Sodium (Divalproex Dose: ORAL, TWICE DAILY for UNKNOWN Sodium) 250 MG TABLET.DR Horvath Tablet Reason Stopped: Changed Dose Divalproex Sodium (Depakote) Dose: ORAL, TWICE DAILY for MOOD 125 MG TABLET. 6 Tablet STABILITY Reason Stopped: Changed Dose 1: [facility], [address] [place], [place] [id number] Multiple Neuroleptics: ([x]) Not Applicable OR Document below three failed attempts at monotherapy, or a plan to taper to monotherapy, or augmentation of Clozapine. () Patient's Diet: Regular. Patient's Activity: No restrictions. DC Disposition: Patient plans to stay with his friend, Romeo. Recommendations: 1. Stay away from drugs and alcohol. 2. Patient advised to have PCP check TSH and follow up anemia and review abnormal EKG (copy of EKG given to patient upon discharge). 3. Patient advised to take medications as prescribed. 4. Patient advised to follow up at [facility] intake. 5. Patient advised that AA and a sponsor are recommended. Referred To: [facility] with intake 11/30/16 at 11:30 a.m. Copies To: VERONICA MAURICIO LPC
== END 2016-11-30 11:15 | DRG 754 ==
LOC: ERH 01:50 → ERHI 12:36 → CP SOUTH 12:36 → EDBEDREQ 14:14 → ENTRNSPT 14:16 → EDBEDREQ 14:23 → CP SOUTH 14:28 → CMPTRNSPT 19:01 → CP SOUTH 11-28 09:23
PROVIDERS: Pediatrics; ADMIT Psychiatry & Neurology Psychiatry
DX: F32.9 Major depressive disorder, single episode, unspecified (principal); F90.9 Attention-deficit hyperactivity disorder, unspecified type; F11.90 Opioid use, unspecified, uncomplicated; F12.90 Cannabis use, unspecified, uncomplicated; Z72.89 Other problems related to lifestyle; D64.9 Anemia, unspecified; R94.31 Abnormal electrocardiogram [ECG] [EKG]
CPT/HCPCS: 36415; 80307; 93005; 93010; G0480